=== PATIENT | male | born 1950 | race Caucasian/White ===

== ENCOUNTER → 2017-06-03 | Outpatient (CLI) | payer MEDICARE, BC ==
[~2017-06-03] MED LIST: GLUCOPHAGE500 MG PO; HYDROCODON-ACE1 EACH PO; TOBREX3.5 GM OP
[2017-06-03 08:53] LABS: CREATININE 1.4 mg/dL (0.6-1.3)
== END ==
LOC: M.LAB 08:30 → M.CT 09:30
PROVIDERS: Surgery Vascular Surgery
DX: I71.4 Abdominal aortic aneurysm, without rupture (principal); K76.0 Fatty (change of) liver, not elsewhere classified; I10 Essential (primary) hypertension; E11.9 Type 2 diabetes mellitus without complications; E78.00 Pure hypercholesterolemia, unspecified; F17.200 Nicotine dependence, unspecified, uncomplicated; Z98.890 Other specified postprocedural states

== ENCOUNTER → 2018-01-13 | Outpatient (CLI) | payer MEDICARE, BC ==
[2018-01-13 07:47] LABS: CREATININE 1.6 mg/dL (0.6-1.3)
== END ==
LOC: M.CT 07:25 → M.LAB 08:00 → M.CT 09:00
PROVIDERS: Surgery Vascular Surgery
DX: I71.4 Abdominal aortic aneurysm, without rupture (principal); E11.9 Type 2 diabetes mellitus without complications

== ENCOUNTER → 2018-08-12 | Outpatient (CLI) | payer MEDICARE, BC ==
[2018-08-12 07:30] LABS: CREATININE 2.4 mg/dL (0.6-1.3)
== END ==
LOC: M.LAB 07:00 → M.CT 09:00
PROVIDERS: Family Medicine
DX: D35.01 Benign neoplasm of right adrenal gland (principal); K42.9 Umbilical hernia without obstruction or gangrene

== ENCOUNTER → 2021-05-21 | Outpatient (CLI) | payer MEDICARE, BC ==
[2021-05-21 13:04] LABS: CREATININE 2.8 mg/dL (0.6-1.3)
== END ==
LOC: M.LAB 05-16 10:01
PROVIDERS: ATTEND Surgery Vascular Surgery
DX: I71.4 Abdominal aortic aneurysm, without rupture (principal)